=== PATIENT | female | born 1990 | race Caucasian/White ===

== ENCOUNTER 2017-08-14 03:04 | Inpatient (IN) | payer BC ==
[2017-08-14] VITALS (17 sets, daily range): BP systolic 105–169; BP diastolic 52–90
[~2017-08-14] VITALS: Ht 160 cm; Wt 91.2 kg
[~2017-08-14 03:04] MED LIST: CAMILA0.35 MG PO; IBUPROFEN800 MG PO; PRENATAL TABLE1 EAC3 PO; TUMS500 MG PO; ZANTAC150 MG PO
[2017-08-14] MEDS ORDERED: ZANTAC150 MG PO (04:32)
[2017-08-14] MEDS ORDERED: ASPIRIN81 M2 PO (04:33)
[2017-08-14 06:10] LABS: BASOPHIL (%) 0.3 % (0-1); EOSINOPHIL (%) 1.2 % (0-5); EOSINOPHIL COUNT 0.1 K/uL (0-0.3); HEMATOCRIT 31.8 % (36.0-46.0); HEMOGLOBIN 10.1 G/DL (11.9-15.5); IMMATURE GRANULOCYTE (%) 0.6 % (0.0-0.7); LYMPHOCYTE (%) 20.4 % (15-42); LYMPHOCYTE COUNT 1.8 K/uL (1.0-2.8); MCH 26.6 PG (29.0-34.0); MCHC 31.8 G/DL (30.0-36.0); MCV 83.9 FL (83-99); MONOCYTE (%) 5.4 % (3-12); MONOCYTE COUNT 0.5 K/uL (0-0.8); NEUTROPHIL (%) 72.1 % (45-76); NEUTROPHIL COUNT 6.5 K/uL (1.8-6.4); PLATELET COUNT 236 K/uL (156-360); RBC DIS.WIDTH-CV 14.4 % (11.8-14.6); RBC DIS.WIDTH-SD 43.6 % (39-53); RED BLOOD COUNT 3.79 M/uL (3.80-5.20)
[2017-08-15 06:30] LABS: BASOPHIL (%) 0.3 % (0-1); EOSINOPHIL COUNT 0.2 K/uL (0-0.3); HEMATOCRIT 30.3 % (36.0-46.0); HEMOGLOBIN 9.9 G/DL (11.9-15.5); IMMATURE GRANULOCYTE (%) 0.5 % (0.0-0.7); LYMPHOCYTE (%) 30.7 % (15-42); LYMPHOCYTE COUNT 2.3 K/uL (1.0-2.8); MCH 27.7 PG (29.0-34.0); MCHC 32.7 G/DL (30.0-36.0); MCV 84.6 FL (83-99); MONOCYTE COUNT 0.4 K/uL (0-0.8); NEUTROPHIL (%) 60.5 % (45-76); NEUTROPHIL COUNT 4.6 K/uL (1.8-6.4); PLATELET COUNT 186 K/uL (156-360); RBC DIS.WIDTH-CV 14.6 % (11.8-14.6); RBC DIS.WIDTH-SD 44.5 % (39-53); RED BLOOD COUNT 3.58 M/uL (3.80-5.20); WHITE BLOOD COUNT 7.6 K/uL (4.1-10.2)
[2017-08-15] MEDS ORDERED: IBUPROFEN800 MG PO (13:47)
== END 2017-08-15 14:20 | disposition home or self-care (01) | DRG 775 ==
LOC: LDRP-OP 03:04 → 2WEST 03:05 → LDRP-OP 09-08 13:11
PROVIDERS: Advanced Practice Midwife
PROC: 00HU33Z Insertion of Infusion Device into Spinal Canal, Percutaneous Approach (ICD-10-PCS; principal; 2017-08-14)
PROC: 3E0R3BZ Introduction of Anesthetic Agent into Spinal Canal, Percutaneous Approach (ICD-10-PCS; principal; 2017-08-14)
PROC: 10E0XZZ Delivery of Products of Conception, External Approach (ICD-10-PCS; principal; 2017-08-14)
DX: O69.81X0 Labor and delivery complicated by cord around neck, without compression, not applicable or unspecified (principal); O48.0 Post-term pregnancy; O99.343 Other mental disorders complicating pregnancy, third trimester; F32.9 Major depressive disorder, single episode, unspecified; F41.9 Anxiety disorder, unspecified; Z3A.40 40 weeks gestation of pregnancy; Z37.0 Single live birth
CPT/HCPCS: 85025; C1755; J3010; J7120